=== PATIENT | female | born 1970 | race Caucasian/White ===

== ENCOUNTER 2017-11-04 19:15 | Emergency (ER) | payer MEDICAID, OTHER ==
[~2017-11-04] VITALS: Ht 147.3 cm; Wt 76.4 kg
[2017-11-04 19:22] VITALS: BP 151/75
[2017-11-04] MEDS ORDERED: DIVA500T1 PO (19:28)
[2017-11-04] MEDS ORDERED: RISP2TAB29 PO (19:28)
[2017-11-04] MEDS: FUROSEMIDE 20 MG TAB PO ONE (22:39)
[2017-11-04 22:45] VITALS: BP 137/83
== END 2017-11-04 22:45 | disposition home or self-care (01) ==
LOC: MED 19:15
DX: I73.89 Other specified peripheral vascular diseases (principal); R60.9 Edema, unspecified; G89.29 Other chronic pain; M54.5 Low back pain; Z88.0 Allergy status to penicillin; Z88.6 Allergy status to analgesic agent; Z91.040 Latex allergy status
CPT/HCPCS: 99283

== ENCOUNTER 2020-08-06 08:07 | Emergency (ER) | payer MEDICAID ==
[~2020-08-06] VITALS: Ht 147.3 cm; Wt 62.6 kg
[~2020-08-06 08:07] MED LIST: DIVA500T1 PO; RISP2TAB52 PO
[2020-08-06 08:08] VITALS: BP 147/96
--- NOTE | 2020-08-06 08:15 | NUR ---
Patient to bed 8. RN evaluating the patient at bedside.
--- NOTE | 2020-08-06 08:20 | NUR ---
49 Y/O F BIB SELF FROM HOME, PATIENT PRESENTS TO ED WITH L EAR PAIN/DEFICIT AND HEADACHE THAT STARTED IN JUNE. PT STATES SHE TOOK NON PRESCRIBED ANTIBIOTICS FOR TONSILITIS (TETRACYCLINE), PT STATES SHE HAD NO RELIEF AND DECIDED TO COME HERE FOR TX, FEELS DIZZY, LIGHT HEADED, OFF BALANCE. DENIES N/V/D; SKIN IS PINK/WARM/DRY; AAOX4 WITH EVEN AND STEADY GAIT; LUNGS CLEAR BL; HR EVEN AND REGULAR; PT DENIES ANY FEVER, CP, SOB, OR COUGH AT THIS TIME; PATIENT STATES PAIN OF 2/10 AT THIS TIME, HEAD PAIN; VSS; PATIENT POSITIONED FOR COMFORT; HOB ELEVATED; BEDRAILS UP X2; BED DOWN. ER MD MADE AWARE OF PT STATUS. PT STATES SHE TRIED DRAINING EARS WITH FLUID (WATER AND HYDROGEN PEROXIDE), NO RELIEF. PMH: CHRONIC PAIN ALLERGY: PENICILLIN, ASPIRIN, LATEX MEDS: TETRACYCLINE (NON PRESCRIBED)
--- NOTE | 2020-08-06 08:31 | NUR ---
Dr. Espinoza is evaluating the patient at bedside.
[2020-08-06] MEDS ORDERED: FLUT0.0560 NS (08:42)
--- NOTE | 2020-08-06 08:49 | NUR ---
d/c pt with VSS. d/c education given. opportunity to ask questions given and answered. rx of fluticasone given. no other needs
== END 2020-08-06 08:49 | disposition home or self-care (01) ==
LOC: MED 08:07
DX: H69.91 Unspecified Eustachian tube disorder, right ear (principal); H69.92 Unspecified Eustachian tube disorder, left ear; F17.210 Nicotine dependence, cigarettes, uncomplicated; I10 Essential (primary) hypertension; E11.9 Type 2 diabetes mellitus without complications; Z88.0 Allergy status to penicillin; Z88.6 Allergy status to analgesic agent; Z91.040 Latex allergy status; Z71.6 Tobacco abuse counseling
CPT/HCPCS: 99283